=== PATIENT | female | born 1965 | race Caucasian/White ===

== ENCOUNTER 2019-05-04 15:33 | Emergency (ER) | payer MEDICAID, OTHER | END 2019-05-04 17:00 | disposition home or self-care (01) | LOC: E/R 15:33 | DX: G51.0 Bell's palsy (principal) | CPT/HCPCS: 99283; Z7502 ==

== ENCOUNTER 2019-05-05 10:36 | Emergency (ER) | payer MEDICAID ==
[2019-05-05 11:03] LABS: ADD MAN DIFF? NO
[2019-05-05 11:08] LABS: WHITE BLOOD COUNT 8.5 10^3/ul (4.8-10.8)
[2019-05-05 11:08] LABS: BASOPHILS % 0.4 % (0.0-2.0); EOSINOPHILS % 0.1 % (0.0-7.0); HEMATOCRIT 42.7 % (37.0-47.0); HEMOGLOBIN 13.6 g/dl (12.0-16.0); LYMPHOCYTES # 1.4 10^3/ul (0.8-2.9); LYMPHOCYTES % 16.7 % (15.0-51.0); MEAN CORPUSCULAR HEMOGLOBIN 26.4 pg (29.0-33.0); MEAN CORPUSCULAR HGB CONC 31.9 g/dl (32.0-37.0); MEAN CORPUSCULAR VOLUME 82.8 fl (82.0-101.0); MEAN PLATELET VOLUME 11.1 fl (7.4-10.4); MONOCYTE # 0.4 10^3/ul (0.3-0.9); MONOCYTES % 4.7 % (0.0-11.0); NEUTROPHIL # 6.6 10^3/ul (1.6-7.5); NEUTROPHILS % 77.7 % (39.0-77.0); PLATELET COUNT 281 10^3/UL (140-415); RED BLOOD COUNT 5.16 10^6/ul (4.20-5.40); RED CELL DISTRIBUTION WIDTH 13.2 % (11.5-14.5)
[2019-05-05 11:17] LABS: ANION GAP 10 (5-13); BLOOD UREA NITROGEN 15 mg/dl (7-20); CARBON DIOXIDE 26 mmol/L (21-31); CHLORIDE 106 mmol/L (97-110); CHOL/HDL RATIO 4.4 RATIO; CHOLESTEROL 229 mg/dl (100-200); CREATININE 0.71 mg/dl (0.44-1.00); Estimated GFR > 60 mL/min (>60); GLUCOSE 131 mg/dl (70-220); HDL CHOLESTEROL 52 mg/dl (37-92); LDL CHOLESTEROL,CALCULATED 163 mg/dl; POTASSIUM 4.1 mmol/L (3.5-5.1); SODIUM 142 mmol/L (135-144); TRIGLYCERIDES 72 mg/dl (0-149)
[2019-05-05 11:28] LABS: TROPONIN-I < 0.012 ng/ml (0.000-0.120)
[2019-05-05 11:29] LABS: INR 0.88; PT RATIO 0.9
[2019-05-05 11:30] LABS: PARTIAL THROMBOPLASTIN TIME 25.4 Sec (23.0-35.0)
[2019-05-05 11:32] LABS: HEMOGLOBIN A1C 5.9 % (0-5.9)
== END 2019-05-05 16:39 | disposition home or self-care (01) ==
LOC: E/R 10:36
DX: R20.2 Paresthesia of skin (principal); F41.9 Anxiety disorder, unspecified; G51.0 Bell's palsy; R03.0 Elevated blood-pressure reading, without diagnosis of hypertension; E78.5 Hyperlipidemia, unspecified; I63.9 Cerebral infarction, unspecified; R40.2142 Coma scale, eyes open, spontaneous, at arrival to emergency department; R40.2252 Coma scale, best verbal response, oriented, at arrival to emergency department; R40.2362 Coma scale, best motor response, obeys commands, at arrival to emergency department
CPT/HCPCS: 70450; 70553; 71045; 80048; 80061; 82962; 83036; 84484; 85025; 85610; 85730; 93005; 99285-25